=== PATIENT | male | born 1980 | race African-American/Black ===

== ENCOUNTER 2020-06-07 09:00 | Outpatient (CLI) | payer SELFPAY ==
--- NOTE | ~2020-06-07 | CT_ITS ---
EXAMINATION: CT brain wo con DATE: 06/07/2020 09:38 INDICATION: New daily headaches. TECHNIQUE: Computed tomography (CT) of the head was performed without intravenous contrast. The mA wa s adjusted according to patient size. Iterative reconstruction technique was employed. The dose-lengt h product was 599.57 mGy-cm. COMPARISON: None FINDINGS: There is no intracranial hemorrhage, acute infarction, or abnormal intracranial mass lesion . The ventricles are normal in size. There is mild mucosal thickening in the paranasal sinuses. There are likely changes of right ocular lens replacement surgery. The mastoid air cells are normal. IMPRESSION: 1. Normal brain. Reviewed, dictated and finalized at location A. CEMENTER IMPRESSION: 1. Normal brain.
== END 2020-06-07 09:01 ==
DX: G44.52 New daily persistent headache (NDPH) (principal)
CPT/HCPCS: 70450